=== PATIENT | male | born 1980 | race Caucasian/White ===

== ENCOUNTER 2017-11-30 16:26 | Emergency (ER) | payer MEDICAID ==
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
[2017-11-30 19:07] VITALS: BP 139/84
== END 2017-11-30 19:39 | disposition home or self-care (01) ==
DX: S09.90XA Unspecified injury of head, initial encounter (principal); S12.9XXA Fracture of neck, unspecified, initial encounter; S63.92XA Sprain of unspecified part of left wrist and hand, initial encounter; S00.91XA Abrasion of unspecified part of head, initial encounter; S23.3XXA Sprain of ligaments of thoracic spine, initial encounter; S39.92XA Unspecified injury of lower back, initial encounter; S50.312A Abrasion of left elbow, initial encounter; F17.200 Nicotine dependence, unspecified, uncomplicated; Z95.5 Presence of coronary angioplasty implant and graft; V00.131A Fall from skateboard, initial encounter; Y92.89 Other specified places as the place of occurrence of the external cause; Y99.8 Other external cause status; Y93.51 Activity, roller skating (inline) and skateboarding
CPT/HCPCS: A4565; L0120